=== PATIENT | male | born 1955 | race Caucasian/White ===

== ENCOUNTER 2022-03-31 17:22 | Emergency (ER) | payer OTHER ==
[~2022-03-31] VITALS: Ht 175.3 cm; Wt 93.0 kg
[2022-03-31 17:48] LABS: BASOPHILS ABSOLUTE AUTO 0.03 K/mm3 (0.00-0.23); BASOPHILS PERCENT AUTO 1 % (0-2); EOSINOPHILS ABSOLUTE AUTO 0.09 K/mm3 (0.00-0.68); EOSINOPHILS PERCENT AUTO 1 % (0-6); Hematocrit 46.8 % (37.0-53.0); Hemoglobin 15.5 g/dL (13.5-17.5); IMMATURE GRAN ABSOLUTE AUTO 0.02 K/mm3 (0.00-0.10); IMMATURE GRAN PERCENT AUTO 0 % (0-1); LYMPHOCYTES ABSOLUTE AUTO 2.36 K/mm3 (0.84-5.20); LYMPHOCYTES PERCENT AUTO 36 % (21-46); MONOCYTES ABSOLUTE AUTO 0.42 K/mm3 (0.16-1.47); MONOCYTES PERCENT AUTO 7 % (4-13); Mean Corpuscular HGB 30.8 pg (26.0-34.0); Mean Corpuscular HGB Conc 33.1 g/dL (31.5-36.5); Mean Corpuscular Volume 93 fL (80-100); Mean Platelet Volume 9.4 fL (9.1-12.4); NEUTROPHILS ABSOLUTE AUTO 3.57 K/mm3 (1.96-9.15); NEUTROPHILS PERCENT AUTO 55 % (41-73); Platelet Count 328 K/mm3 (150-400); RDW Coefficient Variation 12.6 % (11.7-14.2); RDW Standard Deviation 43.3 fL (35.1-46.3); Red Blood Cell Count 5.03 M/mm3 (4.30-5.90); White Blood Cell Count 6.49 K/mm3 (4.00-11.30)
[2022-03-31 18:06] LABS: Albumin/Globulin Ratio 1.1 (0.8-1.8); Bilirubin, Total 0.4 mg/dL (0.1-1.0); Bun/Creatinine Ratio 12.3 (12.0-20.0); Calcium, Blood 9.8 mg/dL (8.5-10.1); Creatinine, Blood 1.22 mg/dL (0.60-1.20); Globulin, Blood 3.6 g/dL (2.2-4.0); Potassium, Blood 3.7 mmol/L (3.5-5.5); Total Protein, Blood 7.6 g/dL (6.4-8.2)
[2022-03-31 20:16] LABS: Source, Urine Clean Catch
[2022-03-31] MEDS ORDERED: ATOR20 (20:19)
[2022-03-31] MEDS ORDERED: DOXA2 PO (20:19)
[2022-03-31] MEDS ORDERED: CYCL10 PO (20:20)
[2022-03-31 20:25] LABS: Bilirubin, Urine Neg (Neg); Blood, Urine Neg (Neg); Glucose Qualitative, Urine Neg (Neg); Ketones, Urine 3+ (Neg); Leukocyte Esterase, Urine 1+ (Neg); Nitrite, Urine Neg (Neg); Protein, Urine 1+ (Neg); Urobilinogen, Urine NORM (Normal)
[2022-03-31 20:39] LABS: Appearance, Urine Clear (Clear); Bacteria Not Seen /hpf; Color, Urine Yellow (P-Yellow); Mucus Light (0-Heavy); Red Blood Cells, Urine Not Seen /hpf (0-2); Squamous Epithelial Cells Not Seen /hpf (Few); White Blood Cells, Urine 0-2 /hpf (0-5)
[2022-03-31] MEDS ORDERED: ONDA4ODT SL (21:43)
== END 2022-03-31 22:07 | disposition home or self-care (01) ==
LOC: ER 17:22
PROVIDERS: Physician Assistant
DX: K52.9 Noninfective gastroenteritis and colitis, unspecified (principal); Z88.5 Allergy status to narcotic agent; Z79.899 Other long term (current) drug therapy
CPT/HCPCS: 74177; 80053; 81001; 83605; 83690; 85025; 93005; 93010; 96374-59; 99284-25; A9270; J2405; J7030; Q9967

== ENCOUNTER 2022-04-17 00:55 | Inpatient (IN) | payer OTHER ==
[~2022-04-17] VITALS: Ht 175.3 cm; Wt 95.9 kg
[~2022-04-17 00:55] MED LIST: ATOR20 PO; CYCL10 PO; Cardura8 MG PO; ONDA4ODT SL
[2022-04-17 01:11] LABS: BASOPHILS ABSOLUTE AUTO 0.02 K/mm3 (0.00-0.23); BASOPHILS PERCENT AUTO 0 % (0-2); EOSINOPHILS PERCENT AUTO 0 % (0-6); Hematocrit 45.7 % (37.0-53.0); Hemoglobin 15.4 g/dL (13.5-17.5); IMMATURE GRAN ABSOLUTE AUTO 0.08 K/mm3 (0.00-0.10); IMMATURE GRAN PERCENT AUTO 0 % (0-1); LYMPHOCYTES ABSOLUTE AUTO 0.63 K/mm3 (0.84-5.20); LYMPHOCYTES PERCENT AUTO 4 % (21-46); MONOCYTES ABSOLUTE AUTO 0.88 K/mm3 (0.16-1.47); MONOCYTES PERCENT AUTO 5 % (4-13); Mean Corpuscular HGB 31.2 pg (26.0-34.0); Mean Corpuscular HGB Conc 33.7 g/dL (31.5-36.5); Mean Corpuscular Volume 93 fL (80-100); NEUTROPHILS ABSOLUTE AUTO 16.34 K/mm3 (1.96-9.15); NEUTROPHILS PERCENT AUTO 91 % (41-73); Platelet Count 240 K/mm3 (150-400); RDW Coefficient Variation 12.9 % (11.7-14.2); RDW Standard Deviation 44.2 fL (35.1-46.3); Red Blood Cell Count 4.93 M/mm3 (4.30-5.90); White Blood Cell Count 17.95 K/mm3 (4.00-11.30)
[2022-04-17 01:26] LABS: Albumin, Blood 3.7 g/dL (3.4-5.0); Albumin/Globulin Ratio 1.1 (0.8-1.8); Bilirubin, Total 0.8 mg/dL (0.1-1.0); Bun/Creatinine Ratio 15.4 (12.0-20.0); Creatinine, Blood 1.04 mg/dL (0.60-1.20); Globulin, Blood 3.5 g/dL (2.2-4.0); Potassium, Blood 3.7 mmol/L (3.5-5.5); Total Protein, Blood 7.2 g/dL (6.4-8.2)
[2022-04-17 01:47] LABS: Influenza A, PCR NEGATIVE (NEGATIVE); Influenza B, PCR NEGATIVE (NEGATIVE); Resp Syncytial Virus, PCR NEGATIVE (NEGATIVE); SARS-Cov-2 (COVID-19) PCR, MMC NEGATIVE (NEGATIVE)
[2022-04-17] MEDS ORDERED: Flonase 0.05% N16 GM (08:33)
[2022-04-17 10:25] LABS: Campylobacter Sp Not Detected (NOT DETECT); Enteroaggregative E. coli-EAEC Not Detected (NOT DETECT); Plesiomonas Shigelloides Not Detected (NOT DETECT); Salmonella Sp Not Detected (NOT DETECT); Vibrio Cholerae Not Detected (NOT DETECT); Vibrio Sp Not Detected (NOT DETECT); Yersinia Enterocolitica Not Detected (NOT DETECT)
[2022-04-17 10:26] LABS: Adenovirus F 40/41 Not Detected (NOT DETECT); Astrovirus Not Detected (NOT DETECT); Cryptosporidium Not Detected (NOT DETECT); Cyclospora Cayetanensis Not Detected (NOT DETECT); E. Coli O157 Not Detected (NOT DETECT); Entamoeba Histolytica Not Detected (NOT DETECT); Enteropathogenic E. coli-EPEC Not Detected (NOT DETECT); Enterotoxigenic E. coli-ETEC Not Detected (NOT DETECT); Giardia Lamblia Not Detected (NOT DETECT); Norovirus GI/GII Not Detected (NOT DETECT); Rotavirus A Not Detected (NOT DETECT); Sapovirus Not Detected (NOT DETECT); Shiga Toxin-prod E. coli-STEC Not Detected (NOT DETECT); Shigella/Enteroin E. coli-EIEC Not Detected (NOT DETECT)
--- NOTE | 2022-04-17 18:29 | NUR ---
ADMIT NOTE PT TO ROOM AT APPROX 0816, PT TRANSFERED TO BED WITH SBA. PT ALERT, ORIENTED x4. PT RESTING IN BED. PT REPORTING INTERMITTENT STOMACH CRAMPING. PT HAVING MULTIPLE EPISODES OF DIARRHEA WITH INTERMITTENT NASUEA; GI PCR SENT, POSITIVE FOR CDIFF, NOTIFIED MD. PT DENIES CHEST PAIN/PRESSURE, SOB, AND NUMB/TINGLING. PT REPORTING DIZZINESS WHEN INITIALLY SITTING UP OR STAND, EDUCATED PT TO MAKE SLOW TRANSITIONS. OTHER VSS. NO OTHER ACUTE CHANGES NOTED. WILL CONTINUE TO MONITOR UNITL REPORT GIVEN TO ONCOMING RN.
[2022-04-18 04:59] LABS: Hematocrit 42.8 % (37.0-53.0); Hemoglobin 14.2 g/dL (13.5-17.5); Mean Corpuscular HGB 31.8 pg (26.0-34.0); Mean Corpuscular HGB Conc 33.2 g/dL (31.5-36.5); Mean Corpuscular Volume 96 fL (80-100); Mean Platelet Volume 10.6 fL (9.1-12.4); Platelet Count 206 K/mm3 (150-400); RDW Coefficient Variation 13.4 % (11.7-14.2); RDW Standard Deviation 47.4 fL (35.1-46.3); Red Blood Cell Count 4.47 M/mm3 (4.30-5.90); White Blood Cell Count 10.01 K/mm3 (4.00-11.30)
[2022-04-18 05:24] LABS: Albumin, Blood 3.2 g/dL (3.4-5.0); Anion Gap 5 mmol/L (6-16); Blood Urea Nitrogen 9 mg/dL (8-24); Bun/Creatinine Ratio 8.7 (12.0-20.0); CO2, Blood 28 mmol/L (21-32); Calcium, Blood 8.5 mg/dL (8.5-10.1); Chloride, Blood 109 mmol/L (98-108); Creatinine, Blood 1.04 mg/dL (0.60-1.20); Glomerular Filtration Rate 79 (60-); Glucose, Blood 92 mg/dL (70-99); Phosphorus, Blood 2.8 mg/dL (2.5-4.9); Potassium, Blood 3.4 mmol/L (3.5-5.5); Sodium, Blood 142 mmol/L (136-145)
--- NOTE | 2022-04-18 06:53 | NUR ---
SHIFT SUMMARY: PATIENT SLEPT BETWEEN CARE. COMPLAINTS OF ABDOMINAL PAIN AND TIREDNESS. MULTIPLE BM'S OVERNIGHT
--- NOTE | 2022-04-18 07:31 | NUR ---
AM NOTE Assumed care of patient at 0700. Pt alert, oriented x4; clam and cooperative with care. Pt sba in room with pole. Pt reports abd cramping and nausea while eating/drinking. Pt denies chest pain/pressure, sob, dizziness and numb/tingling at this time. Spo2 >90% on ra, ls clear, breathing even and unlabored. Tele sinus, bp stable, no edema noted. Abd moderately distended, soft, tender with hypoactive bt. multiple bms t/o. On po vanco. Vss. no other acute changes noted. Will continue to monitor until report given to oncoming rn.
--- NOTE | 2022-04-18 17:56 | NUR ---
SHIFT SUMMARY No acute changes t/o shift. Pt having multiple liquid bm t/o shift. Pt reports less abd cramping this evening. vss. Pt medical status with no tele. Will continue to monitor until report given to oncoming rn.
--- NOTE | 2022-04-18 21:05 | NUR ---
ASSUMPTION OF CARE THIS RN ASSUMED CARE OF PATIENT AT 1900. REPORT TAKEN FROM GLADIS TOWNSEND. PATIENT IS INDEPENDENT WITH ADLS; ENTERIC ISOLATION PRECAUTIONS IN PLACE FOR POSITIVE C-DIFF. PATIENT REPORTS HAVING GREEN LIQUID BOWEL MOVEMENTS EVERY 4 HOURS BUT STATES THAT HIS PAIN/CRAMPING IN THE ABDOMEN HAVE IMPROVED. PATIENT'S VITALS STABLE. AFEBRILE. LR INFUSING AT 125MLS/HR. NO EDEMA OR RESPIRATORY DISTRESS NOTED. PATIENT ALERT AND ORIENTED FULLY. ABLE TO MAKE NEEDS KNOWN AND CALLS FOR HELP APPROPRIATELY. MEDICATING PER EMAR. BED IN LOWEST POSITION AND CALL LIGHT WITHIN REACH. THIS RN WILL REVIEW CHART AND CONTINUE TO MONITOR AND PROVIDE INTERVENTIONS NEEDED/ORDERED.
--- NOTE | 2022-04-19 05:24 | NUR ---
SHIFT SUMMARY PATIENT ALERT AND ORIENTED X4. INDPENDENT WITH ADL'S. NO ACUTE EVENTS THIS SHIFT. PATIENT CALLS APPROPRIATELY. VITALS STABLE. MEDICATED FOR GI CRAMPING X1. LR INFUSING AT 125MLS/HR. TOLERATING WELL. PATIENT REPORTS FREQUENT LIQUID STOOLS THROUGHOUT THE SHIFT OCCURRING EVERY 3-4 HOURS. PATIENT APPEARS TO BE RESTING WITH BED IN LOWEST POSITION AND CALL LIGHT WITHIN REACH. THIS RN WILL CONTINUE TO MONITOR UNTIL SHIFT CHANGE AT 0700.
--- NOTE | 2022-04-19 07:30 | NUR ---
ASSUMED CARE PT. ALERT AND ORIENTED, PALE IN COLOR, CALLED INTO ROOM, PT HAD VOMITED ON THE FLOOR. COFFEE GROUND EMESIS NOTED. PT. ASSISTED TO GET CLEANED UP AND TO BEDSIDE TOILET. PT. REPORTS CONSTANT BURNING AND NAUSEA ALONG WITH BLOATING AND CRAMPING. PT. MOANING AND GRIMACING. CALL TO DR. NESBITT TO REPORT CRITICAL PHOS AND UPDATE ON PT CONDITION. MEDICATIONS OBTAINED FOR PAIN AND NAUSEA AND PHOS REPLACEMENT ORDERED.
--- NOTE | 2022-04-19 07:48 | NUR ---
ASSUMED CARE OF PT THIS AM PT. ALERT AND ORIENTED, INDEPENDENT IN ROOM. PT. DENIES ANY NAUSEA, CONTINUES TO HAVE LIQUID GREEN YELLOW BMS T/O NIGHT. PT. CURRENTLY ON LIQUID DIET, VSS AT THIS TIME. LR INFUSING. ALL NEEDS MET AT THIS TIME, CALL LIGHT IN REACH.
--- NOTE | 2022-04-19 08:15 | NUR ---
UPDATE PT. MED WITH GI COCKTAIL, MINOR RELIEF REPORTED BUT BLOATING AND CRAMPING CONTINUES. PT. REPORTS DIARRHEA T/O NIGHT. STOOL SAMPLE OBTAINED, GELATINOUS WITH RED STREAKS. DR. NESBITT TO BEDSIDE TO MARIA[place]. PT ATTENDS CHANGED AND ASSISTED BACK TO BED. EMESIS BAG AT BEDSIDE. PT. MED PER ORDER FOR NAUSEA, PAIN AND ANXIETY. HEPARIN GTT ON STANDY BY FOR PLANS OF BIOPSY AT 2PM TODAY. PT. HAS CALL LIGHT IN REACH. ALL NEEDS MET AT THIS TIME.
--- NOTE | 2022-04-19 11:43 | NUR ---
ROUNDED ON PT PT AT BEDSIDE. ALL NEEDS MET AT THIS TIME. CALL LIGHT IN REACH.
--- NOTE | 2022-04-19 14:56 | NUR ---
PT. REMAINS INDEPENDENT IN ROOM. VSS. REPORT TO ANGELINA TOWNSEND.
--- NOTE | 2022-04-19 17:57 | NUR ---
TRANSFER OF CARE AT APPROX 1500 REPORT RECEIVED FROM JAMES TOWNSEND. NO ACUTE CHANGE SINCE TRANSITION OF CARE. REPORTED HEADACHE 4/10 TYLENOL GIVEN AND WAS EFFECTIVE 2/10. VITALS HAS BEEN STABLE. LR RUNNING AT 125MLS/ HR. NO OTHER ISSUES REPORTED. PT ABLE TO MAKE NEEDS KNOWN, CALLS APPROPRIATELY WILL REPORT TO ONCOMING SHIFT
--- NOTE | 2022-04-19 22:03 | NUR ---
ASSUMPTION OF CARE THIS RN ASSUMED CARE OF PATIENT AT 1900. REPORT TAKEN FROM ANGELINA TOWNSEND. PATIENT IS INDEPENDENT WITH ADL'S. VITALS STABLE. PATIENT ABLE TO MAKE NEEDS KNOWN. THIS RN HAD THIS PATIENT THE PREVIOUS [employer] AND PT STATES THAT HIS CRAMPING AND FREQUENCY HAS IMPROVED SINCE THEN. MEDICATING PER EMAR. BED IN LOWEST POSITION AND CALL LIGHT WITHIN REACH.
[2022-04-20 04:31] LABS: Bun/Creatinine Ratio 6.8 (12.0-20.0); Calcium, Blood 8.8 mg/dL (8.5-10.1); Creatinine, Blood 0.89 mg/dL (0.60-1.20); Potassium, Blood 3.3 mmol/L (3.5-5.5)
--- NOTE | 2022-04-20 04:40 | NUR ---
SHIFT SUMMARY NO ACUTE EVENTS DURING THIS SHIFT. PATIENT IS CALM AND COOPERATIVE WITH CARE. INDEPENDENT WITH ADL'S. ABLE TO MAKE NEEDS KNOWN AND CALLS APPROPRIATELY. PATIENT REPORTS TO THIS RN THAT HE HAS BEEN HAVING LESS FREQUENT BOWEL MOVEMENTS AND HAS HAD NO EPISODES OF CRAMPING LIKE ON PREVIOUS SHIFTS. VITALS SIGNS STABLE. AFEBRILE. NO TELE PRESENT; MEDICAL STATUS. LR INFUSING AT 125MLS/HR PER EMAR. PATIENT APPEARS TO BE RESTING WITH BED IN LOWEST POSITION AND CALL LIGHT WITHIN REACH. THIS RN WILL CONTINUE TO MONITOR UNTIL SHIFT CHANGE AT 0700.
--- NOTE | 2022-04-20 12:18 | NUR ---
THIS RN SPOKE WITH DR GODFREY VIA TELEPHONE. ORDERS RECEIVED TO DC CLEAR LILQUIDS AND ADVANCE PATIENT TO A REGULAR DIET. PLAN TO KEEP PATIENT UNTIL ABOUT 1600 AND MAY DISCHARGE THEN IF PATIENT REMAINS FREE OF DIARRHEA.
[2022-04-20] MEDS ORDERED: VANCOCIN HCL125 MG PO (12:33)
[2022-04-20] MEDS ORDERED: VISBIOME 112.51 EACH PO (12:34)
[2022-04-20] MEDS ORDERED: Donnatal E16.2 MG/5 PO (12:36)
[2022-04-20] MEDS ORDERED: BANATROL PLUS1 EAC1 PO (12:39)
--- NOTE | 2022-04-20 15:55 | NUR ---
THIS RN SPOKE WITH DR GODFREY VIA TELEPHONE TO CONFIRM PATIENT [facility] OKAY TO DISCHARGE. DR GODFREY VOICED AGREEMENT IN CONTINUING DISCHARGE. PATIENT AWAITING RIDE.
--- NOTE | 2022-04-20 16:54 | NUR ---
DISCHARGE PATIENT HAS HAD NO ACUTE EVENTS THIS SHIFT. NO DIARRHEA NOTED AT ALL TODAY & BOWEL MOVEMENTS HAVE BEEN LESS. TOLERATING A REGULAR DIET, DRINKING & VOIDING WELL. AMBULATES INDEPENDENTLY IN ROOM W/O DIFFICULTY. VSS, PATIENT CONSTANCE PAIN. PATIENT REPORTS FEELING COMFORTABLE WITH DISCHARGE. DISCUSSED DISCHARGE INSTRUCTIONS & NEW MEDICATIONS. REMOVED IV. ESCORTED PATIENT OUT VIA W/C.
== END 2022-04-20 16:42 | disposition home or self-care (01) | DRG 872 ==
LOC: ER 00:55 → PCU 06:07
PROVIDERS: Emergency Medicine; Internal Medicine; ADMIT Family Medicine
DX: A41.9 Sepsis, unspecified organism (principal); A04.72 Enterocolitis due to Clostridium difficile, not specified as recurrent; K52.9 Noninfective gastroenteritis and colitis, unspecified; N42.9 Disorder of prostate, unspecified; E87.6 Hypokalemia; E86.0 Dehydration; Z90.49 Acquired absence of other specified parts of digestive tract; Z98.890 Other specified postprocedural states; Z88.6 Allergy status to analgesic agent; Z88.5 Allergy status to narcotic agent; Z79.899 Other long term (current) drug therapy
CPT/HCPCS: 0241U; 36415; 74177; 80048; 80053; 80069; 83605; 83735; 84145; 85025; 85027; 87040; 87324; 87507; 93005; 93010; A9270; G0103; J0696; J1170; J1650; J2405; J7030; J7120; Q9967

== ENCOUNTER 2023-01-11 18:44 | Inpatient (IN) | payer OTHER ==
[~2023-01-11] VITALS: Ht 172.7 cm; Wt 97.6 kg
[~2023-01-11 18:44] MED LIST changes: +BANATROL PLUS1 EAC1 PO; +Donnatal E16.2 MG/5 PO; +Flonase 0.05% N16 GM; +VANCOCIN HCL125 MG PO; +VISBIOME 112.51 EACH PO
[2023-01-11 19:40] LABS: BASOPHILS ABSOLUTE AUTO 0.04 K/mm3 (0.00-0.23); BASOPHILS PERCENT AUTO 0 % (0-2); EOSINOPHILS ABSOLUTE AUTO 0.05 K/mm3 (0.00-0.68); EOSINOPHILS PERCENT AUTO 0 % (0-6); Hematocrit 43.3 % (37.0-53.0); Hemoglobin 14.9 g/dL (13.5-17.5); IMMATURE GRAN ABSOLUTE AUTO 0.06 K/mm3 (0.00-0.10); IMMATURE GRAN PERCENT AUTO 0 % (0-1); LYMPHOCYTES PERCENT AUTO 17 % (21-46); MONOCYTES ABSOLUTE AUTO 0.82 K/mm3 (0.16-1.47); MONOCYTES PERCENT AUTO 6 % (4-13); Mean Corpuscular HGB 31.6 pg (26.0-34.0); Mean Corpuscular HGB Conc 34.4 g/dL (31.5-36.5); Mean Corpuscular Volume 92 fL (80-100); Mean Platelet Volume 9.6 fL (9.1-12.4); NEUTROPHILS ABSOLUTE AUTO 10.71 K/mm3 (1.96-9.15); NEUTROPHILS PERCENT AUTO 76 % (41-73); Platelet Count 225 K/mm3 (150-400); RDW Coefficient Variation 12.9 % (11.7-14.2); RDW Standard Deviation 43.7 fL (35.1-46.3); Red Blood Cell Count 4.71 M/mm3 (4.30-5.90); White Blood Cell Count 14.08 K/mm3 (4.00-11.30)
[2023-01-11 20:31] LABS: Albumin, Blood 3.8 g/dL (3.4-5.0); Albumin/Globulin Ratio 1.2 (0.8-1.8); Bilirubin, Total 0.5 mg/dL (0.1-1.0); Bun/Creatinine Ratio 15.9 (12.0-20.0); Calcium, Blood 8.6 mg/dL (8.5-10.1); Creatinine, Blood 0.95 mg/dL (0.60-1.20); Globulin, Blood 3.3 g/dL (2.2-4.0); Potassium, Blood 3.8 mmol/L (3.5-5.5); Total Protein, Blood 7.1 g/dL (6.4-8.2)
[2023-01-11 22:27] VITALS: BP 125/81
[2023-01-11] MEDS ORDERED: Nitrostat0.3 MG (22:46)
--- NOTE | 2023-01-11 23:20 | NUR ---
PATIENT IS A NEW ADMIT FROM THE ED. AXOX 4 AND INDEPENDENT TRANSFER FROM [facility] TO BED. ON ROOM AIR. DENIES CHEST PAIN, SOB, AND N/V. REPORTS MILD PAIN IN LLQ OF ABDOMEN. RECEIVED IV DILAUDID 1 MG IN ED. NS @ 150 mL/HR STARTED AND NEXT IV ABX INFUSING. ORIENTED TO ROOM AND CALL LIGHT SYSTEM. REPORTS LIVES IN [place] WITH SPOUSE. VA PATIENT. REPORTS NO TV AFTER ASSESSMENT AND WANTS TO REST/SLEEP. WCTM.
[2023-01-12 02:56] VITALS: BP 104/73
--- NOTE | 2023-01-12 04:24 | NUR ---
SHIFT SUMMARY PATIENT HAD NO ACUTE CHANGES OBSERVED. VA PATIENT. AXOX 4 AND INDEPENDENT IN ROOM. USES URINAL AT BEDSIDE. VSS/AFEBRILE. DENIES CHEST PAIN, SOB, AND N/V. REPORTED LLQ ABDOMEN PAIN X ONE 10/25. IV FENTANYL 50 MCG GIVEN PER EMAR. PATIENT ABLE TO GO BACK TO SLEEP. NS INFUSING @ 150 mL/HR. IV ABX INFUSED. ON ROOM AIR. CALL LIGHT IN REACH. BED IN LOWEST POSITION. WILL CONTINUE TO MONITOR UNTIL DAY SHIFT NURSE ASSUMES CARE.
[2023-01-12 05:33] LABS: BASOPHILS ABSOLUTE AUTO 0.02 K/mm3 (0.00-0.23); BASOPHILS PERCENT AUTO 0 % (0-2); EOSINOPHILS ABSOLUTE AUTO 0.01 K/mm3 (0.00-0.68); EOSINOPHILS PERCENT AUTO 0 % (0-6); Hematocrit 40.9 % (37.0-53.0); Hemoglobin 13.8 g/dL (13.5-17.5); IMMATURE GRAN ABSOLUTE AUTO 0.05 K/mm3 (0.00-0.10); IMMATURE GRAN PERCENT AUTO 0 % (0-1); LYMPHOCYTES ABSOLUTE AUTO 1.95 K/mm3 (0.84-5.20); LYMPHOCYTES PERCENT AUTO 16 % (21-46); MONOCYTES ABSOLUTE AUTO 0.74 K/mm3 (0.16-1.47); MONOCYTES PERCENT AUTO 6 % (4-13); Mean Corpuscular HGB 32.2 pg (26.0-34.0); Mean Corpuscular HGB Conc 33.7 g/dL (31.5-36.5); Mean Corpuscular Volume 96 fL (80-100); Mean Platelet Volume 10.1 fL (9.1-12.4); NEUTROPHILS ABSOLUTE AUTO 9.44 K/mm3 (1.96-9.15); NEUTROPHILS PERCENT AUTO 77 % (41-73); Platelet Count 213 K/mm3 (150-400); RDW Standard Deviation 45.8 fL (35.1-46.3); Red Blood Cell Count 4.28 M/mm3 (4.30-5.90); White Blood Cell Count 12.21 K/mm3 (4.00-11.30)
[2023-01-12 05:57] LABS: Creatinine, Blood 0.93 mg/dL (0.60-1.20); Magnesium, Blood 2.1 mg/dL (1.6-2.4); Potassium, Blood 4.1 mmol/L (3.5-5.5)
[2023-01-12 07:34] VITALS: BP 105/73
[2023-01-12 16:30] VITALS: BP 115/74
--- NOTE | 2023-01-12 16:43 | NUR ---
SHIFT SUMMARY: PATIENT A&OX4. PLEASANT AND COOPERATIVE c CARE. DENIES CP/PRESSURE, N/V, SOB. PATIENT REPORTS ABDOMINAL PAIN TO LLQ, WELL CONTROLLED c EMAR PAIN MEDS. PATIENT REPORTS THE PAIN USUALLY AGGREVATES AFTER PO INTAKE. FL DIET c MODERATE INTAKE. PATIENT REPORTS "NOT MUCH APPETITE." VITAL SIGNS REVIEWED. RECEIVED SCHEDULED MEDS PER EMAR. PIV TO R WRIST INFUSING NS AT 150 MLS/HR. CALL LIGHT IN REACH.
[2023-01-12 20:24] VITALS: BP 142/87
[2023-01-13 02:28] VITALS: BP 126/74
--- NOTE | 2023-01-13 03:19 | NUR ---
PT C/O PAIN WORSE THAN EARLIER THIS SHIFT. ASSESSED PT VITALS SATING 88% ON R/A. PLACED 2.5L NC ON PT. SAT>92%. PT TEMP ALSO TRENDING UP. MD NOTIFIED. ROUTINE 1V CHEST XRAY ORDERED.
[2023-01-13 05:00] LABS: Hematocrit 39.5 % (37.0-53.0); Hemoglobin 13.2 g/dL (13.5-17.5); Mean Corpuscular HGB Conc 33.4 g/dL (31.5-36.5); Mean Corpuscular Volume 96 fL (80-100); Mean Platelet Volume 9.9 fL (9.1-12.4); Platelet Count 215 K/mm3 (150-400); RDW Coefficient Variation 13.2 % (11.7-14.2); RDW Standard Deviation 46.8 fL (35.1-46.3); Red Blood Cell Count 4.12 M/mm3 (4.30-5.90); White Blood Cell Count 11.73 K/mm3 (4.00-11.30)
--- NOTE | 2023-01-13 05:15 | NUR ---
SHIFT SUMMARY PT IS DROWSY BUT ARROUSABLE. C/O PAIN IN THE LLQ. PAIN HAS BEEN DIFFICULT TO CONTROL. PER PT IT IS WORSE THAN YESTERDAY. PT IS NOW ON 2.5L NC. SAT>92%. PT DID NOT SLEEP WELL OVERNIGHT. PT EXPRESSES ANXIETY OVER PAIN AND SEPSIS DIAGNOSIS ON ARRIVAL. EDUCATION PROVIDED ON DISEASE PROCESS. . DURING HOURLY ROUNDING, EDUCATION PROVIDED ON RISKS OF INJURY WHILE USING AN IGNITION SOURCE AROUND OXYGEN. THE PT VERBALIZES UNDERSTANDING AND DENY HAVING ANY IGNITION SOURCES
[2023-01-13 05:41] LABS: Bun/Creatinine Ratio 9.1 (12.0-20.0); Calcium, Blood 8.2 mg/dL (8.5-10.1); Creatinine, Blood 1.1 mg/dL (0.60-1.20); Potassium, Blood 3.9 mmol/L (3.5-5.5)
[2023-01-13 07:45] VITALS: BP 123/76
--- NOTE | 2023-01-13 11:23 | NUR ---
NOTE: DR. BREWER IN ROOM FOR CONSULT AT THIS TIME.
[2023-01-13 15:59] VITALS: BP 118/73
--- NOTE | 2023-01-13 18:38 | NUR ---
SHIFT SUMMARY: PATIENT A&OX4. CALM, PLEASANT AND COOPERATIVE c CARE. PATIENT DENIES PAIN TO LLQ OF HIS ABDOMEN BUT REPORTS SLIGHT TENDERNESS UPON MILD PALPATION. AT BEGINNING OF SHIFT, PATIENT REPORTS NAUSEOUS AND HAD EMESIS OF 400 MLS LIGHT YELLOW LIQUID. PATIENT RECEIVED X2 IV ZOFRAN T/O SHIFT c GOOD EFFECT. PATIENT HAD FEVER ON AND OFF RANGES 99.2-100.9 THIS SHIFT. NPO. RA c SPO2 92-98%. OCCASIONAL NON PRODUCTIVE COUGH, LUNGS CLEAR/DIM T/O TO AUSCULTATION. PATIENT RECEIVED SCHEDULED MEDS PER EMAR. VITAL SIGNS REVIEWED. PIV TO L FOREARM SALINE LOCKED. CALL LIGHT IN REACH. PATIENT EDUCATED ON NON SMOKING POLICY, RISK OF INJURY, IGNITION SOURCES WHEN O2 IN USE. PATIENT DENIES SMOKING AND STATED UNDERSTANDING.
[2023-01-13 19:58] VITALS: BP 127/79
[2023-01-14 04:21] VITALS: BP 129/81
--- NOTE | 2023-01-14 04:44 | NUR ---
SHIFT SUMMARY 67 YR M ADMITTED ON 01/11/23 FOR ACUTE DIVERTICULITIS. FULL CODE. NO ACUTE CHANGES THIS SHIFT. NO C/O N/V THIS SHIFT. PT REPORTS LITTLE TO NO PAIN IN LLQ. PT STATED THAT HE DOES NOT WANT TO HAVE SURGERY AND THAT HE WILL TALK TO DOC ABOUT IT IN THE A.M. HE STATES THAT HE HAS HAD A COLOSTOMY BAG IN THE PAST AND DOES NOT WANT TO DO THAT AGAIN. HE REMAINS NPO AT THIS TIME. HI IS INDEPENDANT IN THE ROOM AND CALLS APPROPRIATELY IF HE NEEDS ASSISTANCE. HE HAS BEEN EDUCATED ON IGNITION SAFETY AND FIRE SAFETY WHILE OXYGEN IS IN USE.
[2023-01-14 05:09] LABS: Hematocrit 39.3 % (37.0-53.0); Hemoglobin 13.3 g/dL (13.5-17.5); Mean Corpuscular HGB Conc 33.8 g/dL (31.5-36.5); Mean Corpuscular Volume 95 fL (80-100); Mean Platelet Volume 9.9 fL (9.1-12.4); Platelet Count 237 K/mm3 (150-400); RDW Coefficient Variation 12.7 % (11.7-14.2); Red Blood Cell Count 4.15 M/mm3 (4.30-5.90); White Blood Cell Count 7.15 K/mm3 (4.00-11.30)
[2023-01-14 05:53] LABS: Bun/Creatinine Ratio 11.2 (12.0-20.0); Calcium, Blood 8.5 mg/dL (8.5-10.1); Creatinine, Blood 1.07 mg/dL (0.60-1.20); Potassium, Blood 3.6 mmol/L (3.5-5.5)
--- NOTE | 2023-01-14 06:32 | NUR ---
NURSE NOTE PT C/O CONSTIPATION AT BEGINNING OF SHIFT BUT THIS A.M. HE REPORTED 2 NORMAL BM'S @ 0300 AND 0600. HE STATES THERE WAS NO BLOOD IN HIS STOOL.
[2023-01-14 07:25] VITALS: BP 135/86
[2023-01-14 16:15] VITALS: BP 133/90
[2023-01-14 19:34] VITALS: BP 121/79
--- NOTE | 2023-01-14 19:39 | NUR ---
SHIFT SUMMARY: PATIENT A&OX4. CALM, PLEASANT AND COOPERATIVE c CARE. USES CALL LIGHT APPROPRIATELY AND ABLE TO MAKE NEEDS KNOWN. PATIENT HAD L LIQUID BROWM BM THIS SHIFT. PATIENT DENIES PAIN, N/V AND SOB. PATIENT STARTED ON CL AT LUNCH, FL DIET AT DINNER AND TOLERATED WELL WITHOUT ANY ISSUES. DENIES LLQ PAIN, N/V AFTER EATING. PATIENT WOULD BENIFIT TO ADVANCE HIS DIET TO REGULAR FOR BREAKFAST. PATIENT HAS BEEN AMBULATING IN ROOM T/O SHIFT. RECEIVED SCHEDULED MEDS PER EMAR. VITAL SIGNS REVIEWED. CALL LIGHT IN REACH.
--- NOTE | 2023-01-15 04:59 | NUR ---
SHIFT SUMMARY- NO ACUTE CHANGES OVERNIGHT TREATED HEADACHE PER EMAR HOWEVER NO OTHER PAIN REPORTED BY PT. BED IS IN LOWEST POSTITION AND CALL LIGHT IN REACH.
[2023-01-15 05:19] VITALS: BP 150/92
[2023-01-15 07:56] VITALS: BP 134/84
[2023-01-15] MEDS ORDERED: Percocet 5-3251 EACH PO (12:55)
[2023-01-15] MEDS ORDERED: AMOCLA875 PO (12:55)
--- NOTE | 2023-01-15 14:15 | NUR ---
DISCHARGE NOTE PT DISCHARGED TO HOME WITH , IV REMOVED. DISCHARGE INFORMATION AND EDUCATION PROVIDED. MEDICATIONS FAXED TO THE PHARMACY OF HIS CHOICE. PERSONAL BELONGINGS RETURNED.
== END 2023-01-15 14:16 | disposition home or self-care (01) | DRG 392 ==
LOC: ER 18:44 → MEDS 22:38
PROVIDERS: Emergency Medicine; Internal Medicine; Nurse Practitioner Acute Care; ADMIT Internal Medicine
PROC: 5A09357 Assistance with Respiratory Ventilation, Less than 24 Consecutive Hours, Continuous Positive Airway Pressure (ICD-10-PCS; principal; 2023-01-14)
DX: K57.32 Diverticulitis of large intestine without perforation or abscess without bleeding (principal); N40.0 Benign prostatic hyperplasia without lower urinary tract symptoms; G47.33 Obstructive sleep apnea (adult) (pediatric); I10 Essential (primary) hypertension; E78.5 Hyperlipidemia, unspecified; F32.A Depression, unspecified; Z79.2 Long term (current) use of antibiotics; Z90.49 Acquired absence of other specified parts of digestive tract; Z88.5 Allergy status to narcotic agent; Z79.899 Other long term (current) drug therapy; Z87.19 Personal history of other diseases of the digestive system; Z79.02 Long term (current) use of antithrombotics/antiplatelets; Z79.52 Long term (current) use of systemic steroids
CPT/HCPCS: 36415; 71045; 74177; 80048; 80053; 83605; 83735; 85025; 85027; 93005; 93010; 94760; 96365; 96375; 99285-25; A9270; J0696; J1170; J2405; J2543; J3010; J7030; J7050; Q9967